=== PATIENT | male | born 1995 | race Caucasian/White ===

== ENCOUNTER 2019-10-10 11:52 | Emergency (ER) | payer SELFPAY ==
[2019-10-10 12:11] VITALS: BP 164/87
[2019-10-10 13:07] LABS: APPEARANCE,URINE CLEAR; BILIRUBIN,URINE NEGATIVE (NEGATIVE); COLOR,URINE YELLOW; GLUCOSE, URINE NEGATIVE (NEGATIVE); KETONES,URINE NEGATIVE (NEGATIVE); LEUKOCYTE ESTERASE,URINE TRACE (NEGATIVE); NITRITE,URINE NEGATIVE (NEGATIVE); PROTEIN,URINE NEGATIVE (NEGATIVE); URINE SPECIFIC GRAVITY 1.008
[2019-10-10 14:08] LABS: ABSOLUTE BASOPHILS # (AUTO) 0.1 10^3/uL (0.0-0.2); ABSOLUTE LYMPHOCYTES (AUTO) 1.1 10^3/uL (0.5-4.7); ABSOLUTE MONOCYTES (AUTO) 0.6 10^3/uL (0.1-1.4); ABSOLUTE NEUT (AUTO) 2.8 10^3/uL (1.7-8.2); BASOPHILS % (AUTO) 1.2 % (0-2); EOSINOPHILS % (AUTO) 0.7 % (0-6); HEMATOCRIT 44.3 % (37.9-51.0); HEMOGLOBIN 15.5 g/dL (13.5-17.0); LYMPHOCYTES % (AUTO) 24.4 % (13-45); MEAN CORPUSCULAR VOLUME 94 fl (80-97); MONOCYTES % (AUTO) 13.4 % (3-13); PLATELET COUNT 195 10^3/uL (150-450); RED CELL DISTRIBUTION WIDTH 12.5 % (11.5-14.0); SEGMENTED NEUTROPHILS % (AUTO) 60.3 % (42-78); TOTAL CELLS COUNTED % (AUTO) 100 %; WHITE BLOOD COUNT 4.6 10^3/uL (4.0-10.5)
[2019-10-10] MEDS ORDERED: ONDANSETRON HCL INJ/PF 4 MG/2 ML SDV IV ONE (14:09)
[2019-10-10] MEDS ORDERED: NORMAL SALINE 1000 ML 1,000 ML IV ONE (14:09)
[2019-10-10 14:20] LABS: ALBUMIN 4.9 g/dL (3.5-5.0); ALKALINE PHOSPHATASE 134 U/L (38-126); ANION GAP 9 (5-19); ASPARTATE AMINO TRANSFERASE 309 U/L (17-59); BILIRUBIN,DIRECT 1.1 mg/dL (0.0-0.4); BILIRUBIN,TOTAL 2.7 mg/dL (0.2-1.3); BLOOD UREA NITROGEN 13 mg/dL (7-20); CARBON DIOXIDE 30 mmol/L (22-30); CHLORIDE 95 mmol/L (98-107); GLUCOSE 136 mg/dL (75-110); POTASSIUM 4.3 mmol/L (3.6-5.0); TOTAL PROTEIN 8.3 g/dL (6.3-8.2)
--- NOTE | 2019-10-10 15:03 | ER Document Report ---
Entered by ARSH MCELROY SCRIBE 10/10/19 1414 Acting as scribe for:MADY BANG MD ED General - General Chief Complaint: Tremor Stated Complaint: WEAKNESS,TREMORS Time Seen by Provider: 10/10/19 13:59 Mode of Arrival: Ambulatory Information source: Patient Notes: This 24 year old male patient presents to the emergency department today with complaints of possible heat injury three days ago while at work. 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 Patient states that during his lunch break he noticed his hands were shaking, described as tremors. Patient states that the "tremors became so bad he couldn't function at work" so he went home and vomited after he got home. Patient reports that his urine has been dark yellow. - Related Data Allergies/Adverse Reactions: No Known Allergies Allergy (Verified 10/10/19 13:12) Past Medical History - General Information source: Patient - Social History Smoking Status: Current Every Day Smoker Cigarette use (# per day): Yes Chew tobacco use (# tins/day): No Frequency of alcohol use: Heavy - Patient admits to drinking to the point of inebriation at least 5 nights per week. Drug Abuse: None Occupation: [employer] Lives with: Grandparent(s) Family History: Reviewed & Not Pertinent Patient has homicidal ideation: No - Medical History Medical History: Negative Surgical Hx: Negative Review of Systems - Review of Systems Constitutional: No symptoms reported EENT: No symptoms reported Cardiovascular: No symptoms reported Respiratory: No symptoms reported Gastrointestinal: See HPI, Nausea, Vomiting Genitourinary: No symptoms reported Male Genitourinary: No symptoms reported Musculoskeletal: See HPI, Muscle pain, Muscle stiffness Skin: No symptoms reported Hematologic/Lymphatic: No symptoms reported Neurological/Psychological: See HPI, Tremor -: Yes All other systems reviewed and negative Physical Exam - Vital signs Vitals: Temp Pulse Resp BP Pulse Ox 98.0 F 79 16 164/87 H 98 10/10/19 12:10 10/10/19 12:10 10/10/19 12:10 10/10/19 12:10 10/10/19 12:10 - Notes Notes: Physical Exam: General: Alert, appears well. Very fine tremor when he holds his hands up. HEENT: Normocephalic. Atraumatic. PERRL. Extraocular movements intact. Oropharynx clear. Dry mucous membranes. No posterior oropharynx erythema or exudate. Neck: Supple. Non-tender. Respiratory: No respiratory distress. Coarse rhonchi bilaterally consistent with smoking history. Cardiovascular: Regular rate and rhythm. Abdominal: Normal Inspection. Non-tender. No distension. Normal Bowel Sounds. Back: No gross abnormalities. Extremities: Moves all four extremities. Upper extremities: Normal inspection. Normal ROM. Lower extremities: Normal inspection. No edema. Normal ROM. Neurological: Normal cognition. AAOx4. Normal speech. Psychological: Normal affect. Normal Mood. Skin: Warm. Dry. Normal color. Course - Re-evaluation Re-evalutation: 10/10/19 15:55 The patient's LFTs and bilirubin were both elevated. On questioning him about his alcohol intake, he now admits to drinking to the point of inebriation at least 5 nights a week. At this point differential diagnosis is gallbladder di sease, infectious hepatitis, or alcoholic hepatitis with symptoms secondary to alcohol withdrawal. - Vital Signs Vital signs: Temp Pulse Resp BP Pulse Ox 98.0 F 79 16 164/87 H 98 10/10/19 12:10 10/10/19 12:10 10/10/19 12:10 10/10/19 12:10 10/10/19 12:10 - Laboratory Result Diagrams: 10/10/19 13:35 10/10/19 13:35 Laboratory results interpreted by me: 10/10/19 10/10/19 10/10/19 12:21 13:35 13:35 [place] % (Auto) 13.4 H Sodium 134.1 L Chloride 95 L Glucose 136 H Total Bilirubin 2.7 H Direct Bilirubin 1.1 H AST 309 H ALT 342 H Alkaline Phosphatase 134 H Creatine Kinase Total Protein 8.3 H Urine Blood SMALL H Urine Urobilinogen 4.0 H Ur Leukocyte Esterase TRACE H 10/10/19 13:35 [place] % (Auto) Sodium Chloride Glucose Total Bilirubin Direct Bilirubin AST ALT Alkaline Phosphatase Creatine Kinase 360 H Total Protein Urine Blood Urine Urobilinogen Ur Leukocyte Esterase - Diagnostic Test Radiology reviewed: Image reviewed - GB[facility] WNL Discharge - Discharge Clinical Impression: Elevated LFTs Condition: Stable Disposition: HOME, SELF-CARE Additional Instructions: Hepatitis: Hepatitis is an inflammation of the liver, usually caused by a virus. This is known as infectious hepatitis. Hepatitis can also be caused by alcohol abuse. This is known as alcoholic hepatitis. With infectious hepatitis, usually there is a week or so of malaise, fatigue, aches, lack of appetite, and headache, followed by nausea and vomiting, dark urine, and jaundice. Cases of hepatitis A, B, or C are usually reported to the health department. Tests will determine what type of hepatitis you have: (1) Hepatitis B: This type of hepatitis is not highly contagious. It is usually transmitted by needles or sexual contact. The length of the illness is longer (a couple of months), and the chance of long-term complications is greater. Special immune globulin is available for sexual partners or others exposed to blood or body fluids. (2) Hepatitis A (infectious hepatitis): Hepatitis A is more contagious, but has a shorter length of illness (2-4 weeks). Close personal contacts may need gamma globulin shots to prevent hepatitis. (3) Hepatitis C: This type of hepatitis is passed by blood products or sexual contact. The initial illness is less severe, but there is a good chance the hepatitis will become chronic. (4) Non-specific hepatitis: Other viruses can cause hepatitis. These cases of hepatitis usually go away without permanent damage. There is no cure for hepatitis. While you are ill, you may receive m edication to make you more comfortable. Do not drink alcohol, and don't take any drug or medication not approved by your doctor. Rest and try to eat a healthy diet. Use good handwashing so you don't spread the virus. Shared toys should be cleaned with disinfectant. Clean the toilets, sinks, and counter surfaces in bathrooms. Launder clothing in hot water. Return or call the doctor if you develop increasing abdominal pain, severe vomiting, dehydration, severe weakness, or confusion. With alcoholic hepatitis, you can have the same liver enzyme elevations, but generally do not have the same symptoms. In your case, the tremors you were having and the elevated blood pressure today suggests your problem may more likely be due to alcohol abuse and alcohol withdrawal symptoms. You should stop drinking alcohol completely no matter which type of liver inflammation is occurring. Follow-up with a local primary care provider sometime later this week to review your lab work, and to recheck your liver enzymes. RETURN TO THE EMERGENCY ROOM IF ANY NEW OR WORSENING SYMPTOMS. I personally performed the services described in the documentation, reviewed and edited the documentation which was dictated to the scribe in my presence, and it accurately records my words and actions.
[2019-10-10 16:10] LABS: INTERNATIONAL RATION (INR) 0.84; PROTHROMBIN TIME 11.7 SEC (11.4-15.4)
--- NOTE | 2019-10-10 16:35 | RADIOLOGY REPORT (SQ) ---
EXAM DESCRIPTION: U/S ABDOMEN LIMITED W/O DOP IMAGES COMPLETED DATE/TIME: 10/10/2019 4:07 pm REASON FOR STUDY: Elevated LFTs, nausea and vomiting COMPARISON: None. TECHNIQUE: Dynamic and static grayscale images acquired of the abdomen and recorded on PACS. Additio nal selected color Doppler and spectral images recorded. LIMITATIONS: None. FINDINGS: PANCREAS: Not well visualized. LIVER: Echotexture is coarse with increased echogenicity consistent with fatty infiltration. Mildly enlarged measuring 18.4 cm. LIVER VASCULATURE: Normal directional flow of the main portal vein and hepatic veins. GALLBLADDER: No stones. Normal wall thickness. No pericholecystic fluid. ULTRASOUND-DETECTED QUINTEROS'S SIGN: Negative. INTRAHEPATIC DUCTS AND COMMON DUCT: CBD and intrahepatic ducts normal caliber. No filling defects. INFERIOR VENA CAVA: Normal flow. AORTA: No aneurysm. RIGHT KIDNEY: Normal size. Normal echogenicity. No solid or suspicious masses. No hydronephrosis. No calcifications. PERITONEAL AND RIGHT PLEURAL SPACE: No ascites or effusions. OTHER: No other significant finding. IMPRESSION: Hepatomegaly with diffusely increased echogenicity, findings consistent with hepatic marivel atosis. Otherwise, unremarkable right upper quadrant ultrasound. TECHNICAL DOCUMENTATION: JOB ID: [id number] 2010 [employer]- All Rights Reserved Reading location - IP/workstation name: [email or web address]
[2019-10-12 05:38] LABS: HEPATITS B SURFACE ANTIGEN Negative (Negative)
[2019-10-12 07:24] LABS: HEPATITIS C VIRUS ANTIBODY >11.0 s/co ratio (0.0-0.9)
== END 2019-10-10 17:02 | disposition home or self-care (01) ==
LOC: ER 11:52
DX: R79.89 Other specified abnormal findings of blood chemistry (principal); R39.89 Other symptoms and signs involving the genitourinary system; M79.10 Myalgia, unspecified site; R11.2 Nausea with vomiting, unspecified; R25.1 Tremor, unspecified; F17.210 Nicotine dependence, cigarettes, uncomplicated
CPT/HCPCS: 99284; 96361; 96374; 36415; 82550; 85025; 85610; 80053; 81001; 80074; 76705; J2405; J7030